=== PATIENT | female | born 1960 | race Caucasian/White ===

== ENCOUNTER 2024-07-11 14:34 | Observation (INO) | payer BC ==
[2024-07-11] MEDS ORDERED: DUONEB 0.5-3 MG/3 ml Neb IH ONE ×2 (14:43→21:10)
[2024-07-11 15:02] LABS: Absolute Neutrophil Ct (ANC) 6.04 x10^3/uL (1.56-6.13); BASOPHIL % 0.5 % (0.1-1.2); Basophil (Absolute #) 0.04 x10^3/uL (0.01-0.08); Eosinophil % 0.5 % (0.7-5.8); Eosinophil (Absolute #) 0.04 x10^3/uL (0.04-0.36); Hematocrit 47.1 % (34.1-44.9); Hemoglobin 15.3 g/dL (11.2-15.7); IMMATURE GRAN # 0.03 x10^3u/L (0.001-0.031); IMMATURE GRAN % 0.4 % (0.001-0.429); Lymphocyte (Absolute #) 0.88 x10^3/uL (1.18-3.74); Lymphocytes % 11.5 % (19.3-51.7); Mean Cell Volume 93.3 fL (79.4-94.8); Mean Corpuscular Hemoglobin 30.3 pg (25.6-32.2); Mean Corpuscular Hgb Concent. 32.5 g/dL (32.2-35.5); Mean Platelet Volume 10.8 fL (9.4-12.3); Monocyte (Absolute #) 0.64 x10^3/uL (0.24-0.86); Monocytes % 8.3 % (4.7-12.5); Neutrophil % 78.8 % (34.0-71.1); Platelet Count 199 x10^3/uL (182-369); Red Blood Count 5.05 x10^6/uL (3.93-5.22); Red Cell Distribution Width 12.8 % (11.7-14.4); White Blood Count 7.7 x10^3/uL (3.98-10.04)
[2024-07-11] MEDS: DUONEB 0.5-3 MG/3 ml Neb IH ONE (15:04)
--- NOTE | 2024-07-11 15:15 | ERPHSYRPT ---
- History of Present Illness Time Seen by Provider: 07/11/24 14:50 Source: patient Exam Limitations: no limitations Patient Subjective Stated Complaint: [facility] called and was sending the pt down for low O2 levels Triage Nursing Assessment: pt came into the er via wheelchair; pt is axo x4; c/o SOB; pt denies pain; audible wheezing present; amarilys coarse lung sounds in all lobes; moist hacking present; tempature of 100 oral; pt was 90% on room air, pt was put on 2L and O2 is now 97%; skin PDW; hypertensive Physician History: 64-year-old female presents to our ED as a referral from [facility] for evaluation. Patient went to [facility] for evaluation of cough and shortness of breath. Upon her arrival patient was observed to be hypoxic. Patient received an albuterol treatment as well as a IM dose of betamethasone 3 mg. Patient symptoms started approximately 2 days ago. Symptoms have been progressive. 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 But no obvious sick contacts. No associated chest pain. No nausea no vomiting. Patient denies a history of COPD. Patient was hypoxic upon arrival. Oxygen nasal cannula applied. Patient's temperature upon arrival was 100. Patient voices no other complaints or concerns at this time. Portions of this note were created with voice recognition technology. There may be grammatical, spelling, punctuation or sound alike errors Timing/Duration: day(s) Activities at Onset: activity Severity of Dyspnea-Max: moderate Severity of Dyspnea-Current: moderate Possible Cause: no prior episodes Modifying Factors: Improves With: activity Associated Symptoms: cough, fever Allergies/Adverse Reactions: Penicillins Allergy (Mild, Verified 06/21/24 11:53) Home Medications: Furosemide [Lasix] 20 mg PO DAILY 07/11/24 [History] Gabapentin 600 mg PO HS 07/11/24 [History] Lisinopril 20 mg [Zestril 20 MG] 20 mg PO DAILY 07/11/24 [History] Morphine Sulfate 1 tab PO TID PRN 07/11/24 [History] Potassium Chloride 10 meq PO DAILY 07/11/24 [History] Rosuvastatin Calcium 5 mg PO DAILY 07/11/24 [History] Venlafaxine HCl [Venlafaxine HCl ER] 150 mg PO DAILY 07/11/24 [History] Hx Tetanus, Diphtheria Vaccination/Date Given: No (unknown) Hx Influenza Vaccination/Date Given: No Hx Pneumococcal Vaccination/Date Given: No Travel Risk - International Travel Have you traveled outside of the country in past 3 weeks: No - Emerging Infectious Disease Are you exhibiting symptoms associated with any current EIDs: Yes Symptoms: Shortness of Breath - Review of Systems Constitutional: No Symptoms, No Fever, No Chills Eyes: No Symptoms Ears, Nose, & Throat: No Symptoms Respiratory: No Symptoms, No Cough, No Dyspnea Cardiac: No Symptoms, No Chest Pain, No Edema, No Syncope Abdominal/Gastrointestinal: No Symptoms, No Abdominal Pain, No Nausea, No Vomiting, No Diarrhea Genitourinary Symptoms: No Symptoms, No Dysuria Musculoskeletal: No Symptoms, No Back Pain, No Neck Pain Skin: No Symptoms, No Rash Neurological: No Symptoms, No Dizziness, No Focal Weakness, No Sensory Changes Psychological: No Symptoms Endocrine: No Symptoms Hematologic/Lymphatic: No Symptoms Immunological/Allergic: No Symptoms All Other Systems: Reviewed and Negative - Past Medical History Pertinent Past Medical History: Yes Neurological History: Migraines, Peripheral Neuropathy ENT History: No Pertinent History Cardiac History: Hypertension Respiratory History: No Pertinent History Endocrine Medical History: No Pertinent History Musculoskeletal History: Fractures GI Medical History: No Pertinent History History: No Pertinent History Psycho-Social History: No Pertinent History Female Reproductive Disorders: No Pertinent History Other Medical History: PSH: BILATERAL HIP REPLACEMENT (2014 AND 2016), HYSTERECTOMY, HERNIA REPAIR. FRACTURES: TAILBONE X2 - Past Surgical History Past Surgical History: Yes Neuro Surgical History: No Pertinent History Cardiac: No Pertinent History Respiratory: No Pertinent History Gastrointestinal: No Pertinent History Genitourinary: No Pertinent History Musculoskeletal: Joint Replacement Female Surgical History: Hysterectomy Other Surgical History: amarilys.hip replacement - Social History Smoking Status: Never smoker Exposure to second hand smoke: Yes Drug Use: none - Social Determinants of Health Will the patient participate in the screening: Yes Do you worry about a steady place to live?: No Do you have any problems with any of the following?: No known problems In the past 12 months,have you had to go without utilities?: No Transportation Issues: No Has anyone in your support network made you feel unsafe?: No Have you or anyone in your house had to go without enough: No - Nursing Vital Signs Nursing Vital Signs: Initial Vital Signs Pulse Rate 58 L 07/11/24 14:32 Respiratory Rate 15 02/11/25 14:32 Blood Pressure 173/82 07/11/24 14:32 O2 Sat by Pulse Oximetry 90 L 07/11/24 14:32 Pain Scale Pain Intensity 0 - Physical Exam General Appearance: no apparent distress, alert Eye Exam: PERRL/EOMI Ears, Nose, Throat Exam: hearing grossly normal, normal pharynx Neck Exam: normal inspection, supple, full range of motion Respiratory Exam: diminished breath sounds, rhonchi, wheezing Cardiovascular/Chest Exam: normal heart sounds, regular rate/rhythm Abdominal/Gastrointestinal Exam: soft, No tenderness, No distention, No mass Extremity Exam: non-tender, normal range of motion, normal inspection, no calf tenderness, no pedal edema Neurologic Exam: alert, oriented x 3, cooperative, junior buyer II-XII nml as tested, sensation nml, No motor deficits Skin Exam: normal color, warm, No dry Lymphatic Exam: No adenopathy SpO2 Interpretation: normal SpO2: 94 O2 Delivery: Room Air - Course Nursing assessment & vital signs reviewed: Yes EKG Interpreted by Me: RATE (49), Sinus Melvin, NORMAL AXIS, NORMAL INTERVALS, NORMAL QRS - CT Exams Chest CT Interpretation: Tele-radiologist Report (Bilateral airspace disease no PE) Ordered Tests: Active Orders 24 hr Category Date Time Status Prepress Operator STAT Care 07/11/24 14:39 Active EKG-ER Only STAT Care 07/11/24 14:38 Active IV Insertion STAT Care 07/11/24 14:38 Active Pulse Oximetry (ED) STAT Care 07/11/24 14:38 Active CHEST WITH CONTRAST [CT] Stat Exams 07/11/24 16:29 Taken BLOOD CULTURE Stat Lab 07/11/24 14:58 Received CBC W DIFF Stat Lab 07/11/24 14:51 Completed CMP Stat Lab 07/11/24 14:51 Completed D-DIMER QUANTITATIVE Stat Lab 07/11/24 14:51 Completed NT PRO BNPII Stat Lab 07/11/24 14:51 Completed TROPONIN Q4H Lab 07/11/24 14:51 Completed TROPONIN Q4H Lab 07/11/24 18:32 Completed TROPONIN Q4H Lab 07/11/24 22:45 Ordered Respiratory Therapy Assessment DAILY RT 07/11/24 15:05 Active Transfer Order Routine Transfer 07/11/24 Ordered Medication Summary Generic Name Dose Route Start Last Admin Trade Name Freq PRN Reason Stop Dose Admin Levofloxacin/Dextrose 750 mg in 150 mls @ 100 mls/hr 07/11/24 19:09 07/11/24 19:16 Levofloxacin 750mg/150ml D5w IV 07/11/24 20:38 100 mls/hr STAT STA 100 mls/hr Administration Discontinued Medications Generic Name Dose Route Start Last Admin Trade Name Jere PRN Reason Stop Dose Admin Albuterol/Ipratropium 3 ml 07/11/24 14:38 07/11/24 15:04 Ipratropium/Albuterol Sulfate 3 Ml Ampul.Neb IH 07/11/24 14:39 3 ml STAT ONE Administration Albuterol/Ipratropium Confirm 07/11/24 14:43 Ipratropium/Albuterol Sulfate 3 Ml Ampul.Neb Administered 07/11/24 14:44 Dose 3 ml IH .STK-MED ONE Diphenhydramine HCl 50 mg 07/11/24 20:15 Diphenhydramine Hcl 50 Mg/Ml Vial IV 07/11/24 20:16 STAT ONE Levofloxacin/Dextrose Confirm 07/11/24 19:16 Levofloxacin 750mg/150ml D5w Administered 07/11/24 19:17 Dose 750 mg in 150 mls @ ud IV .STK-MED ONE Lab/Rad Data: Laboratory Result Diagrams 07/11/24 14:51 07/11/24 14:51 Laboratory Results 07/11/24 07/11/24 07/11/24 Range/Units 18:32 15:00 14:51 WBC (3.98-10.04) x10^3/uL RBC (3.93-5.22) x10^6/uL Hgb (11.2-15.7) g/dL Hct (34.1-44.9) % MCV (79.4-94.8) fL MCH (25.6-32.2) pg MCHC (32.2-35.5) g/dL RDW (11.7-14.4) % Plt Count (182-369) x10^3/uL MPV (9.4-12.3) fL Gran % (34.0-71.1) % Immature Gran % (Auto) (0.001-0.429) % Nucleat RBC Rel Count (0.00-0.2) % Eos # (Auto) (0.04-0.36) x10^3/uL Immature Gran # (Auto) (0.001-0.031) x10^3u/L Absolute Lymphs (auto) (1.18-3.74) x10^3/uL Absolute Monos (auto) (0.24-0.86) x10^3/uL Absolute Nucleated RBC (0.00-0.012) x10^3u/L Lymphocytes % (19.3-51.7) % Monocytes % (4.7-12.5) % Eosinophils % (0.7-5.8) % Basophils % (0.1-1.2) % Absolute Granulocytes (1.56-6.13) x10^3/uL Basophils # (0.01-0.08) x10^3/uL D-Dimer (0.0-0.50) mg/L Sodium (135-145) mmol/L Potassium (3.5-5.1) mmol/L Chloride (98-107) mmol/L Carbon Dioxide (22-30) mmol/L Anion Gap (5-15) MEQ/L BUN (7-17) mg/dL Creatinine (0.52-1.04) mg/dL Estimated GFR ML/MIN Glucose (74-106) mg/dL Calcium (8.4-10.2) mg/dL Total Bilirubin (0.2-1.3) mg/dL AST (14-36) U/L ALT (0-35) U/L Alkaline Phosphatase (38-126) U/L Troponin I 0.014 0.012 (0.000-0.033) ng/mL NT-Pro-B Natriuret Pep (<300) pg/mL Serum Total Protein (6.3-8.2) g/dL Albumin (3.5-5.0) g/dL Influenza Type A Ag NEGATIVE (NEGATIVE) Influenza Type B Ag NEGATIVE (NEGATIVE) RSV (PCR) NEGATIVE (NEGATIVE) SARS-CoV-2 (PCR) NEGATIVE (NEGATIVE) 07/11/24 07/11/24 07/11/24 Range/Units 14:51 14:51 14:51 WBC 7.7 (3.98-10.04) x10^3/uL RBC 5.05 (3.93-5.22) x10^6/uL Hgb 15.3 (11.2-15.7) g/dL Hct 47.1 H (34.1-44.9) % MCV 93.3 (79.4-94.8) fL MCH 30.3 (25.6-32.2) pg MCHC 32.5 (32.2-35.5) g/dL RDW 12.8 (11.7-14.4) % Plt Count 199 (182-369) x10^3/uL MPV 10.8 (9.4-12.3) fL Gran % 78.8 H (34.0-71.1) % Immature Gran % (Auto) 0.4 (0.001-0.429) % Nucleat RBC Rel Count 0.0 (0.00-0.2) % Eos # (Auto) 0.04 (0.04-0.36) x10^3/uL Immature Gran # (Auto) 0.03 (0.001-0.031) x10^3u/L Absolute Lymphs (auto) 0.88 L (1.18-3.74) x10^3/uL Absolute Monos (auto) 0.64 (0.24-0.86) x10^3/uL Absolute Nucleated RBC 0.00 (0.00-0.012) x10^3u/L Lymphocytes % 11.5 L (19.3-51.7) % Monocytes % 8.3 (4.7-12.5) % Eosinophils % 0.5 L (0.7-5.8) % Basophils % 0.5 (0.1-1.2) % Absolute Granulocytes 6.04 (1.56-6.13) x10^3/uL Basophils # 0.04 (0.01-0.08) x10^3/uL D-Dimer 2.34 H* (0.0-0.50) mg/L Sodium 138 (135-145) mmol/L Potassium 4.3 (3.5-5.1) mmol/L Chloride 100 (98-107) mmol/L Carbon Dioxide 30 (22-30) mmol/L Anion Gap 11.5 (5-15) MEQ/L BUN 11 (7-17) mg/dL Creatinine 0.69 (0.52-1.04) mg/dL Estimated GFR 96.9 ML/MIN Glucose 105 (74-106) mg/dL Calcium 8.6 (8.4-10.2) mg/dL Total Bilirubin 0.40 (0.2-1.3) mg/dL AST 36 (14-36) U/L ALT 21 (0-35) U/L Alkaline Phosphatase 96 (38-126) U/L Troponin I (0.000-0.033) ng/mL NT-Pro-B Natriuret Pep 364 (<300) pg/mL Serum Total Protein 7.5 (6.3-8.2) g/dL Albumin 4.5 (3.5-5.0) g/dL Influenza Type A Ag (NEGATIVE) Influenza Type B Ag (NEGATIVE) RSV (PCR) (NEGATIVE) SARS-CoV-2 (PCR) (NEGATIVE) - Progress Progress: improved Air Movement: good Progress Note: 64-year-old female presents to our ED as a referral from [facility] for evaluation of shortness of breath and hypoxia. Physical exam reveals wheezing diminished breath sounds and rhonchi. D-dimer positive. CTA chest negative for PE. However bilateral airspace disease observed. Blood cultures obtained. Antibiotics administered. Patient feels much better however is not ready for discharge. Patient will be admitted for further evaluation and treatment. Case discussed with hospitalist accepts admission to observation at 7:55 PM. Plan of care discussed with patient. She agrees to admission to [facility] for further evaluation and treatment. Portions of this note were created with voice recognition technology. There may be grammatical, spelling, punctuation or sound alike errors 07/11/24 20:18 Complexity of problem addressed is moderate acute complicated. No critical care time. Complex of data reviewed analyzes extensive. Test ordered test reviewed results analyzed and correlated clinically with history and physical exam. Management discussed with hospitalist who excepts admission to observation. Risk of complication and or risk of morbidity/mortality of patient management is high. Patient requires hospitalization for further evaluation and treatment. Vital stable. Time spent to admit patient is approximately 15 minutes. Plan of care established for shared decision making. No social determinants of health present to impede follow-up. Portions of this note were created with voice recognition technology. There may be grammatical, spelling, punctuation or sound alike errors 07/11/24 20:19 Blood Culture(s) Obtained: Yes Antibiotics given: Yes Discussed with : Yina Will see patient in: hospital (observation) Counseled pt/family regarding: lab results, diagnosis, rad results - Departure Departure Disposition: Observation Clinical Impression: Bilateral pneumonia, Hypoxia, Shortness of breath, Wheezing Condition: Stable Critical Care Time: No Referrals: ESTHER DE LA GARZA [Primary Care Provider] - Follow up/PCP as directed
[2024-07-11 15:26] LABS: ALBUMIN 4.5 g/dL (3.5-5.0); ANION GAP 11.5 MEQ/L (5-15); BILIRUBIN,TOTAL 0.4 mg/dL (0.2-1.3); Calcium 8.6 mg/dL (8.4-10.2); Creatinine 1 0.69 mg/dL (0.52-1.04); EST GLOMERULAR FILTRATION RATE 96.9 ML/MIN; Potassium 4.3 mmol/L (3.5-5.1); Total Protein 7.5 g/dL (6.3-8.2)
[2024-07-11 15:39] LABS: INFLUENZA A NEGATIVE (NEGATIVE); INFLUENZA B NEGATIVE (NEGATIVE); RESPIRATORY SYNCTIAL VIRUS NEGATIVE (NEGATIVE); SARS-CoV-2 Xpert Express NEGATIVE (NEGATIVE)
[2024-07-11] MEDS: LEVOFLOXACIN 750MG/150ML D5W 750 MG/150 ML BAG IV STA (19:16)
[2024-07-11] MEDS ORDERED: LEVOFLOXACIN 750MG/150ML D5W 750 MG/150 ML BAG IV ONE (19:16)
[2024-07-11] MEDS: BENADRYL 50 MG/ML IV ONE (20:17)
[2024-07-11] MEDS ORDERED: BENADRYL 50 MG/ML ONE (20:17)
[2024-07-11] MEDS: DUONEB 0.5-3 MG/3 ml Neb IH SCH (21:29)
[2024-07-11] MEDS ORDERED: MSIR 15 MG PO PRN (22:11)
--- NOTE | 2024-07-11 23:02 | PCM.HP ---
History of Present Illness - Chief Complaint Chief Complaint: shortness of breath, cough Date: 07/11/24 History of Present Illness: 64-year-old woman with history of hypertension, chronic hip pain, and depression, who presents with dyspnea and cough. Patient noted onset 3 days earlier of dyspnea and frequent cough, with some subjective fever and night sweats, and 1 episode of diarrhea. She has had no appetite, with poor oral intake for the past 3 days. Her had similarly been sick a few days earlier, but had been improving overall. She continues to have severe dyspnea and wheezing, and went to urgent care. There she was noted to have an SpO2 in the 80s. She was given steroids and nebulizer treatment, and sent to the ED. She is currently requiring 2 L oxygen, as well as being given Levaquin and DuoNeb in the ER. Patient denies any history of COPD or asthma, and has no smoking history. However, she notes that she has a nebulizer machine at home because after a bout of pneumonia few years ago she had to use nebs during her recovery. However, she has never used the machine since then. She did not try using it during this episode because she had landed out to a friend who is currently bringing it back to her. - Review of Systems All Other Systems: Reviewed and Negative Medications & Allergies Home Medications: Home Medication List Furosemide [Lasix] 20 mg PO DAILY 07/11/24 [History Confirmed 07/11/24] Gabapentin 600 mg PO HS 07/11/24 [History Confirmed 07/11/24] Lisinopril 20 mg [Zestril 20 MG] 20 mg PO DAILY 07/11/24 [History Confirmed 07/11/24] Morphine Sulfate 1 tab PO TID PRN 07/11/24 [History Confirmed 07/11/24] Potassium Chloride 10 meq PO DAILY 07/11/24 [History Confirmed 07/11/24] Rosuvastatin Calcium 5 mg PO DAILY 07/11/24 [History Confirmed 07/11/24] Venlafaxine HCl [Venlafaxine HCl ER] 150 mg PO DAILY 07/11/24 [History Confirmed 07/11/24] Allergies/Adverse Reactions: Allergies Allergy/AdvReac Type Severity Reaction Status Date / Time Penicillins Allergy Mild Verified 06/21/24 11:53 - Past Medical History Past Medical History: Yes Neurological History: Migraines, Peripheral Neuropathy ENT History: No Pertinent History Cardiac History: Hypertension Respiratory History: No Pertinent History Endocrine Medical History: No Pertinent History Musculoskelatal History: Fractures GI Medical History: No Pertinent History History: No Pertinent History Pyscho-Social History: No Pertinent History Reproductive Disorders: No Pertinent History Comment: PSH: BILATERAL HIP REPLACEMENT (2014 AND 2015), HYSTERECTOMY, HERNIA REPAIR. FRACTURES: TAILBONE X2 - Past Surgical History Past Surgical History: Yes Neuro Surgical History: No Pertinent History Cardiac History: No Pertinent History Respiratory Surgery: No Pertinent History GI Surgical History: No Pertinent History Genitourinary Surgical Hx: No Pertinent History Musculskeletal Surgical Hx: Joint Replacement Female Surgical History: Hysterectomy Other Surgical History: amarilys.hip replacement Significant Family History: no pertinent family hx - Social History Smoking Status: Never smoker Exposure to second hand smoke: No Alcohol: None Drug Use: none - Social Determinants of Health Will the patient participate in the screening: Declined to provide Do you worry about a steady place to live?: No Do you have any problems with any of the following?: No known problems In the past 12 months,have you had to go without utilities?: No Have you or anyone in your house had to go without enough: No Transportation Issues: No Has anyone in your support network made you feel unsafe?: No - Physical Exam Vital Signs: Vital Signs - 24 hr Temp Pulse Resp BP Pulse Ox 07/11/24 21:30 65 22 95 07/11/24 20:44 98.2 F 63 24 95 07/11/24 20:24 94 L 07/11/24 20:03 54 L 18 97 07/11/24 19:46 51 L 16 159/106 07/11/24 19:30 52 L 18 178/84 95 07/11/24 19:28 53 L 27 H 179/80 94 L 07/11/24 19:20 51 L 19 07/11/24 19:18 90 23 07/11/24 19:01 52 L 23 169/90 97 07/11/24 18:46 57 L 17 184/80 95 07/11/24 18:15 58 L 20 178/83 99 07/11/24 18:11 57 L 22 176/117 99 07/11/24 18:01 61 17 165/83 98 07/11/24 17:30 59 L 16 204/79 100 07/11/24 17:17 58 L 21 198/79 95 07/11/24 17:11 60 22 198/79 95 07/11/24 17:10 67 16 94 L 07/11/24 16:31 177/80 07/11/24 16:29 58 L 18 195/82 97 07/11/24 16:03 63 17 192/83 98 07/11/24 15:30 54 L 20 196/86 99 07/11/24 15:05 50 L 18 94 L 07/11/24 15:01 57 L 17 175/89 97 07/11/24 14:44 90 L 07/11/24 14:35 100 F 50 L 22 90 L 07/11/24 14:32 58 L 15 173/82 90 L Physical Exam GEN: Sitting up in bed in no acute distress. HENT: Normocephalic, atraumatic. Moist mucous membranes. EYES: Normal inspection, anicteric sclera, extraocular movements intact. NECK: Supple, full range of motion CV: Regular rate and rhythm, no murmurs, no gallops. No JVD or edema. PULM: Diffuse expiratory wheezing. No work of breathing. On 2 L oxygen by nasal cannula. ABD: Nondistended, nontender. MSK: No joint effusions, full range of motion SKIN: No rashes, normal color. NEURO: Face symmetric, no focal motor or sensory deficits. PSYCH: Alert, oriented x 3 Results - Labs Lab/Micro Results: Lab Results-Last 24 Hours 07/11/24 07/11/24 07/11/24 Range/Units 14:51 14:51 14:51 WBC 7.7 (3.98-10.04) x10^3/uL RBC 5.05 (3.93-5.22) x10^6/uL Hgb 15.3 (11.2-15.7) g/dL Hct 47.1 H (34.1-44.9) % MCV 93.3 (79.4-94.8) fL MCH 30.3 (25.6-32.2) pg MCHC 32.5 (32.2-35.5) g/dL RDW 12.8 (11.7-14.4) % Plt Count 199 (182-369) x10^3/uL MPV 10.8 (9.4-12.3) fL Gran % 78.8 H (34.0-71.1) % Immature Gran % (Auto) 0.4 (0.001-0.429) % Nucleat RBC Rel Count 0.0 (0.00-0.2) % Eos # (Auto) 0.04 (0.04-0.36) x10^3/uL Immature Gran # (Auto) 0.03 (0.001-0.031) x10^3u/L Absolute Lymphs (auto) 0.88 L (1.18-3.74) x10^3/uL Absolute Monos (auto) 0.64 (0.24-0.86) x10^3/uL Absolute Nucleated RBC 0.00 (0.00-0.012) x10^3u/L Lymphocytes % 11.5 L (19.3-51.7) % Monocytes % 8.3 (4.7-12.5) % Eosinophils % 0.5 L (0.7-5.8) % Basophils % 0.5 (0.1-1.2) % Absolute Granulocytes 6.04 (1.56-6.13) x10^3/uL Basophils # 0.04 (0.01-0.08) x10^3/uL D-Dimer 2.34 H* (0.0-0.50) mg/L Sodium 138 (135-145) mmol/L Potassium 4.3 (3.5-5.1) mmol/L Chloride 100 (98-107) mmol/L Carbon Dioxide 30 (22-30) mmol/L Anion Gap 11.5 (5-15) MEQ/L BUN 11 (7-17) mg/dL Creatinine 0.69 (0.52-1.04) mg/dL Estimated GFR 96.9 ML/MIN Glucose 105 (74-106) mg/dL Calcium 8.6 (8.4-10.2) mg/dL Total Bilirubin 0.40 (0.2-1.3) mg/dL AST 36 (14-36) U/L ALT 21 (0-35) U/L Alkaline Phosphatase 96 (38-126) U/L Troponin I (0.000-0.033) ng/mL NT-Pro-B Natriuret Pep 364 (<300) pg/mL Serum Total Protein 7.5 (6.3-8.2) g/dL Albumin 4.5 (3.5-5.0) g/dL Influenza Type A Ag (NEGATIVE) Influenza Type B Ag (NEGATIVE) RSV (PCR) (NEGATIVE) SARS-CoV-2 (PCR) (NEGATIVE) 07/11/24 07/11/24 07/11/24 Range/Units 14:51 15:00 18:32 WBC (3.98-10.04) x10^3/uL RBC (3.93-5.22) x10^6/uL Hgb (11.2-15.7) g/dL Hct (34.1-44.9) % MCV (79.4-94.8) fL MCH (25.6-32.2) pg MCHC (32.2-35.5) g/dL RDW (11.7-14.4) % Plt Count (182-369) x10^3/uL MPV (9.4-12.3) fL Gran % (34.0-71.1) % Immature Gran % (Auto) (0.001-0.429) % Nucleat RBC Rel Count (0.00-0.2) % Eos # (Auto) (0.04-0.36) x10^3/uL Immature Gran # (Auto) (0.001-0.031) x10^3u/L Absolute Lymphs (auto) (1.18-3.74) x10^3/uL Absolute Monos (auto) (0.24-0.86) x10^3/uL Absolute Nucleated RBC (0.00-0.012) x10^3u/L Lymphocytes % (19.3-51.7) % Monocytes % (4.7-12.5) % Eosinophils % (0.7-5.8) % Basophils % (0.1-1.2) % Absolute Granulocytes (1.56-6.13) x10^3/uL Basophils # (0.01-0.08) x10^3/uL D-Dimer (0.0-0.50) mg/L Sodium (135-145) mmol/L Potassium (3.5-5.1) mmol/L Chloride (98-107) mmol/L Carbon Dioxide (22-30) mmol/L Anion Gap (5-15) MEQ/L BUN (7-17) mg/dL Creatinine (0.52-1.04) mg/dL Estimated GFR ML/MIN Glucose (74-106) mg/dL Calcium (8.4-10.2) mg/dL Total Bilirubin (0.2-1.3) mg/dL AST (14-36) U/L ALT (0-35) U/L Alkaline Phosphatase (38-126) U/L Troponin I 0.012 0.014 (0.000-0.033) ng/mL NT-Pro-B Natriuret Pep (<300) pg/mL Serum Total Protein (6.3-8.2) g/dL Albumin (3.5-5.0) g/dL Influenza Type A Ag NEGATIVE (NEGATIVE) Influenza Type B Ag NEGATIVE (NEGATIVE) RSV (PCR) NEGATIVE (NEGATIVE) SARS-CoV-2 (PCR) NEGATIVE (NEGATIVE) - Radiology Impressions Radiology Exams & Impressions: Radiology Procedures Category Date Time Status CHEST WITH CONTRAST [CT] Stat Exams 07/11/24 16:[address] chest bilateral upper lobe and right lower lobe diffuse airspace infiltrates. No PE. (Images personally reviewed) - Other Procedures and Tests Respiratory Therapy 07/11/24 15:05 Respiratory Therapy Assessment DAILY 07/11/24 21:29 Oxygen Oxymizer LPM 2 lpm Assessment/Plan (1) Bilateral pneumonia Current Visit: Yes Status: Acute Assessment & Plan: 64-year-old woman with a history of hypertension, depression, and chronic hip pain, who presents with pneumonia, acute hypoxic respiratory failure, and likely bronchitis. ## Pneumonia community-acquired, and given its diffuse appearance on chest x- ray, as well as recent infection from her , I suspect is likely viral pneumonia. However, given the severity of her disease, need for inpatient admission, and hypoxia, will cover for bacterial pneumonia. Continue Levaquin 500 mg IV daily Follow-up blood culture results ## Acute hypoxic respiratory failure, reactive airway disease patient denies any history of COPD or asthma. She has no smoking history. However, she has had a prior episode of reactive airways after a bout of pneumonia. Currently she is having wheezing and hypoxia, consistent with reactive airways. Perhaps this is an acute bronchitis, or perhaps is a very mild COPD. In either case, would benefit from anti-inflammatory therapy and bronchodilators. Solu-Medrol 40 mg IV BID DuoNeb q.6 hours, as well as q.4 hours PRN Titrate oxygen to maintain SpO2 between 91 and 94% When recovered, patient can be referred for outpatient pulmonary function testing to see if has an underlying COPD component ## Hypertension blood pressure poorly controlled on admission, but in the setting of acute illness. Continue home lisinopril 20, Lasix 20 for now ## Depression appropriate affect currently. Continue home Effexor 100 mg daily ## Chronic hip pain Continue home morphine IR 15 mg TID CODE STATUS: Full code Prophylaxis: Lovenox 40 Diet: Regular Dispo: Place in observation, expect discharge to home once breathing has improved and weaned off oxygen Entirety of encounter took place via live audio/video telemedicine device, with remote physician and patient in hospital, with the assistance of bedside nurse. Code(s): J18.9 - PNEUMONIA, 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 Telemedicine Encounter - Telemedicine Encounter Telemedicine Encounter: "The entirety of this encounter was performed via Telemedicine" This visit was performed using real-time audio and video connection between my location and thepatients locationwith the assistance of a surrogateat the patients location. Written or verbal consent was obtained from the patient/guardian to perform this visit using[facility] technology. Any patient questions regarding the telemedicine interaction were answered.
[2024-07-12 04:43] LABS: Hematocrit 42.4 % (34.1-44.9); Hemoglobin 14.1 g/dL (11.2-15.7); Mean Cell Volume 92.4 fL (79.4-94.8); Mean Corpuscular Hemoglobin 30.7 pg (25.6-32.2); Mean Corpuscular Hgb Concent. 33.3 g/dL (32.2-35.5); Platelet Count 193 x10^3/uL (182-369); Red Blood Count 4.59 x10^6/uL (3.93-5.22)
[2024-07-12 04:59] LABS: Calcium 8.3 mg/dL (8.4-10.2); Creatinine 1 0.66 mg/dL (0.52-1.04); EST GLOMERULAR FILTRATION RATE 97.9 ML/MIN; Potassium 3.9 mmol/L (3.5-5.1)
[2024-07-12] MEDS: TYLENOL 325 MG PO PRN (07:54)
--- NOTE | 2024-07-12 08:38 | XRAY ---
Indication: Short of breath. Hypoxia. Elevated d-dimer. Multiple contiguous axial images obtained through the chest using 80 cc Isovue 370 contrast and PE protocol. Comparison: None Good opacification pulmonary arteries to include the lobar and segmental branches. No pulmonary embolus. Heart not enlarged. Aorta is normal in course and caliber. No pathologic mediastinal/hilar lymphadenopathy. Lungs demonstrates mild scattered bilateral patchy consolidating/nonconsolidating airspace disease. No effusion. Bony thorax intact with osteopenia and moderate degenerative changes throughout spine. Limited upper abdomen demonstrates fatty liver. Impression: 1. Negative pulmonary embolus.. 2. Diffuse bilateral patchy airspace disease. 3. Chronic findings including osteopenia, degenerative spondylosis, and fatty liver.
[2024-07-12] MEDS: Zestril 20 MG PO SCH (09:18)
[2024-07-12] MEDS: Effexor XR 75 MG PO SCH (09:19)
[2024-07-12] MEDS: ENOXAPARIN SODIUM SQ SCH (09:19)
[2024-07-12] MEDS: solu-MEDROL 40 MG, Sterile H2O 10 ml 1 ML IV SCH (09:19)
[2024-07-12] MEDS: Zocor 10MG PO SCH (09:19)
[2024-07-12] MEDS: Klor Con PO SCH (09:19)
[2024-07-12] MEDS: LASIX 20 MG PO SCH (09:19)
[2024-07-12] MEDS ORDERED: NON-FORMULARY ITEM (Rosuvastatin Calcium [Rosuvastatin Calcium] 5 MG Tablet) PO SCH (10:00)
[2024-07-12] MEDS ORDERED: NON-FORMULARY ITEM (Venlafaxine Hcl [Venlafaxine Hcl Er] 150 MG Tab.Er.24) PO SCH (10:00)
[2024-07-12] MEDS: DUONEB 0.5-3 MG/3 ml Neb IH PRN (10:48)
--- NOTE | 2024-07-12 12:22 | PCM.NOTE ---
Date and Time: 07/12/24 1216 Subjective Assessment: 07/12/23 Mrs. Lawrence is a 64-year-old woman with history of hypertension, chronic hip pain, and depression, who presents with dyspnea and cough. Pt seen in ER on 07/11 and admitted to the hospital. Patient noted onset 3 days earlier of dyspnea and frequent cough, with some subjective fever and night sweats, and 1 episode of diarrhea. She has had no appetite, with poor oral intake for the past 3 days. Her had similarly been sick a few days earlier, but had been improving overall. She continues to have severe dyspnea and wheezing, and went to urgent care. There she was noted to have an SpO2 in the 80s. She was given steroids and nebulizer treatment, and sent to the ED. She is currently requiring 2 L oxygen- 94%, as well as being given Levaquin and DuoNeb in the ER. Patient denies any history of COPD or asthma, and has no smoking history. However, she notes that she has a nebulizer machine at home because after a bout of pneumonia few years ago she had to use nebs during her recovery. However, she has never used the machine since then. She did not try using it during this episode because she had lend it out to a friend who is currently bringing it back to her. CXr shows RML pneumonia. Continue IV antibiotics, steroids, and duonebs. Labs overall improved. She will likely d/c tomorrow. Will wean O2 as tolerated. She denies CP, Abd. pain, N/V/D. - Review of Systems Constitutional: Fatigue, No Fever, No Chills Eyes: No Symptoms Ears, Nose, & Throat: No Symptoms Respiratory: Cough (with red sputum production), Short Of Breath Cardiac: No Chest Pain, No Edema, No Syncope Abdominal/Gastrointestinal: No Abdominal Pain, No Nausea, No Vomiting, No Diarrhea Genitourinary Symptoms: No Dysuria Musculoskeletal: No Back Pain, No Neck Pain Skin: No Rash Neurological: No Dizziness, No Focal Weakness, No Sensory Changes Psychological: No Symptoms Endocrine: No Symptoms Hematologic/Lymphatic: No Symptoms Immunological/Allergic: No Symptoms Objective Exam General Appearance: no apparent distress, alert, obese Neurologic Exam: alert, oriented x 3, cooperative, normal mood/affect, nml cerebellar function, sensation nml, No motor deficits Skin Exam: normal color, warm, dry Eye Exam: PERRL, EOMI, eyes nml inspection Ears, Nose, Throat Exam: normal ENT inspection, pharynx normal, moist mucous membranes Neck Exam: normal inspection, non-tender, supple, full range of motion Respiratory Exam: wheezing, No respiratory distress Cardiovascular Exam: regular rate/rhythm, normal heart sounds Gastrointestinal/Abdomen Exam: soft, No tenderness, No mass Extremity Exam: normal inspection, normal range of motion Back Exam: normal inspection, normal range of motion, No CVA tenderness, No vertebral tenderness Pelvic Exam: deferred Rectal Exam: deferred Objective Data Vital Signs: Vital Signs - 24 hr Temp Pulse Resp BP BP Pulse Ox 07/12/24 11:48 97.9 F 67 22 188/86 93 L 07/12/24 10:49 81 22 95 07/12/24 07:55 44 L 20 94 L 07/12/24 04:00 97.8 F 58 L 24 149/69 94 L 07/12/24 01:29 55 L 20 94 L 07/11/24 23:32 67 22 170/74 93 L 07/11/24 21:30 65 22 95 07/11/24 20:44 98.2 F 63 24 95 07/11/24 20:24 94 L 07/11/24 20:03 54 L 18 97 07/11/24 19:46 51 L 16 159/106 07/11/24 19:30 52 L 18 178/84 95 07/11/24 19:28 53 L 27 H 179/80 94 L 07/11/24 19:20 51 L 19 07/11/24 19:18 90 23 07/11/24 19:01 52 L 23 169/90 97 07/11/24 18:46 57 L 17 184/80 95 07/11/24 18:15 58 L 20 178/83 99 07/11/24 18:11 57 L 22 176/117 99 07/11/24 18:01 61 17 165/83 98 07/11/24 17:30 59 L 16 204/79 100 07/11/24 17:17 58 L 21 198/79 95 07/11/24 17:11 60 22 198/79 95 07/11/24 17:10 67 16 94 L 07/11/24 16:31 177/80 07/11/24 16:29 58 L 18 195/82 97 07/11/24 16:03 63 17 192/83 98 07/11/24 15:30 54 L 20 196/86 99 07/11/24 15:05 50 L 18 94 L 07/11/24 15:01 57 L 17 175/89 97 07/11/24 14:44 90 L 07/11/24 14:35 100 F 50 L 22 90 L 07/11/24 14:32 58 L 15 173/82 90 L Pain Assessment - Last Documented Pain Intensity 4 Pain Scale Used 0-10 Pain Scale Intake and Output: Intake & Output 07/10/24 07/11/24 07/12/24 07/13/24 11:59 11:59 11:59 11:59 Intake Total 780 Output Total 250 Balance 530 Weight 96.7 kg Lab Results: Lab Results-Last 24 Hours 07/11/24 07/11/24 07/11/24 Range/Units 14:51 14:51 14:51 WBC 7.7 (3.98-10.04) x10^3/uL RBC 5.05 (3.93-5.22) x10^6/uL Hgb 15.3 (11.2-15.7) g/dL Hct 47.1 H (34.1-44.9) % MCV 93.3 (79.4-94.8) fL MCH 30.3 (25.6-32.2) pg MCHC 32.5 (32.2-35.5) g/dL RDW 12.8 (11.7-14.4) % Plt Count 199 (182-369) x10^3/uL MPV 10.8 (9.4-12.3) fL Gran % 78.8 H (34.0-71.1) % Immature Gran % (Auto) 0.4 (0.001-0.429) % Nucleat RBC Rel Count 0.0 (0.00-0.2) % Eos # (Auto) 0.04 (0.04-0.36) x10^3/uL Immature Gran # (Auto) 0.03 (0.001-0.031) x10^3u/L Absolute Lymphs (auto) 0.88 L (1.18-3.74) x10^3/uL Absolute Monos (auto) 0.64 (0.24-0.86) x10^3/uL Absolute Nucleated RBC 0.00 (0.00-0.012) x10^3u/L Lymphocytes % 11.5 L (19.3-51.7) % Monocytes % 8.3 (4.7-12.5) % Eosinophils % 0.5 L (0.7-5.8) % Basophils % 0.5 (0.1-1.2) % Absolute Granulocytes 6.04 (1.56-6.13) x10^3/uL Basophils # 0.04 (0.01-0.08) x10^3/uL D-Dimer 2.34 H* (0.0-0.50) mg/L Sodium 138 (135-145) mmol/L Potassium 4.3 (3.5-5.1) mmol/L Chloride 100 (98-107) mmol/L Carbon Dioxide 30 (22-30) mmol/L Anion Gap 11.5 (5-15) MEQ/L BUN 11 (7-17) mg/dL Creatinine 0.69 (0.52-1.04) mg/dL Estimated GFR 96.9 ML/MIN Glucose 105 (74-106) mg/dL Calcium 8.6 (8.4-10.2) mg/dL Total Bilirubin 0.40 (0.2-1.3) mg/dL AST 36 (14-36) U/L ALT 21 (0-35) U/L Alkaline Phosphatase 96 (38-126) U/L Troponin I (0.000-0.033) ng/mL NT-Pro-B Natriuret Pep 364 (<300) pg/mL Serum Total Protein 7.5 (6.3-8.2) g/dL Albumin 4.5 (3.5-5.0) g/dL Procalcitonin (0.030-0.080) ng/mL Influenza Type A Ag (NEGATIVE) Influenza Type B Ag (NEGATIVE) RSV (PCR) (NEGATIVE) SARS-CoV-2 (PCR) (NEGATIVE) 07/11/24 07/11/24 07/11/24 Range/Units 14:51 15:00 18:32 WBC (3.98-10.04) x10^3/uL RBC (3.93-5.22) x10^6/uL Hgb (11.2-15.7) g/dL Hct (34.1-44.9) % MCV (79.4-94.8) fL MCH (25.6-32.2) pg MCHC (32.2-35.5) g/dL RDW (11.7-14.4) % Plt Count (182-369) x10^3/uL MPV (9.4-12.3) fL Gran % (34.0-71.1) % Immature Gran % (Auto) (0.001-0.429) % Nucleat RBC Rel Count (0.00-0.2) % Eos # (Auto) (0.04-0.36) x10^3/uL Immature Gran # (Auto) (0.001-0.031) x10^3u/L Absolute Lymphs (auto) (1.18-3.74) x10^3/uL Absolute Monos (auto) (0.24-0.86) x10^3/uL Absolute Nucleated RBC (0.00-0.012) x10^3u/L Lymphocytes % (19.3-51.7) % Monocytes % (4.7-12.5) % Eosinophils % (0.7-5.8) % Basophils % (0.1-1.2) % Absolute Granulocytes (1.56-6.13) x10^3/uL Basophils # (0.01-0.08) x10^3/uL D-Dimer (0.0-0.50) mg/L Sodium (135-145) mmol/L Potassium (3.5-5.1) mmol/L Chloride (98-107) mmol/L Carbon Dioxide (22-30) mmol/L Anion Gap (5-15) MEQ/L BUN (7-17) mg/dL Creatinine (0.52-1.04) mg/dL Estimated GFR ML/MIN Glucose (74-106) mg/dL Calcium (8.4-10.2) mg/dL Total Bilirubin (0.2-1.3) mg/dL AST (14-36) U/L ALT (0-35) U/L Alkaline Phosphatase (38-126) U/L Troponin I 0.012 0.014 (0.000-0.033) ng/mL NT-Pro-B Natriuret Pep (<300) pg/mL Serum Total Protein (6.3-8.2) g/dL Albumin (3.5-5.0) g/dL Procalcitonin (0.030-0.080) ng/mL Influenza Type A Ag NEGATIVE (NEGATIVE) Influenza Type B Ag NEGATIVE (NEGATIVE) RSV (PCR) NEGATIVE (NEGATIVE) SARS-CoV-2 (PCR) NEGATIVE (NEGATIVE) 07/11/24 07/12/24 07/12/24 Range/Units 22:30 04:15 04:15 WBC 7.0 (3.98-10.04) x10^3/uL RBC 4.59 (3.93-5.22) x10^6/uL Hgb 14.1 (11.2-15.7) g/dL Hct 42.4 (34.1-44.9) % MCV 92.4 (79.4-94.8) fL MCH 30.7 (25.6-32.2) pg MCHC 33.3 (32.2-35.5) g/dL RDW 13.0 (11.7-14.4) % Plt Count 193 (182-369) x10^3/uL MPV 11.0 (9.4-12.3) fL Gran % (34.0-71.1) % Immature Gran % (Auto) (0.001-0.429) % Nucleat RBC Rel Count (0.00-0.2) % Eos # (Auto) (0.04-0.36) x10^3/uL Immature Gran # (Auto) (0.001-0.031) x10^3u/L Absolute Lymphs (auto) (1.18-3.74) x10^3/uL Absolute Monos (auto) (0.24-0.86) x10^3/uL Absolute Nucleated RBC (0.00-0.012) x10^3u/L Lymphocytes % (19.3-51.7) % Monocytes % (4.7-12.5) % Eosinophils % (0.7-5.8) % Basophils % (0.1-1.2) % Absolute Granulocytes (1.56-6.13) x10^3/uL Basophils # (0.01-0.08) x10^3/uL D-Dimer (0.0-0.50) mg/L Sodium 134 L (135-145) mmol/L Potassium 3.9 (3.5-5.1) mmol/L Chloride 100 (98-107) mmol/L Carbon Dioxide 26 (22-30) mmol/L Anion Gap 12.0 (5-15) MEQ/L BUN 10 (7-17) mg/dL Creatinine 0.66 (0.52-1.04) mg/dL Estimated GFR 97.9 ML/MIN Glucose 94 (74-106) mg/dL Calcium 8.3 L (8.4-10.2) mg/dL Total Bilirubin (0.2-1.3) mg/dL AST (14-36) U/L ALT (0-35) U/L Alkaline Phosphatase (38-126) U/L Troponin I < 0.012 (0.000-0.033) ng/mL NT-Pro-B Natriuret Pep (<300) pg/mL Serum Total Protein (6.3-8.2) g/dL Albumin (3.5-5.0) g/dL Procalcitonin (0.030-0.080) ng/mL Influenza Type A Ag (NEGATIVE) Influenza Type B Ag (NEGATIVE) RSV (PCR) (NEGATIVE) SARS-CoV-2 (PCR) (NEGATIVE) 07/12/24 Range/Units Unknown WBC (3.98-10.04) x10^3/uL RBC (3.93-5.22) x10^6/uL Hgb (11.2-15.7) g/dL Hct (34.1-44.9) % MCV (79.4-94.8) fL MCH (25.6-32.2) pg MCHC (32.2-35.5) g/dL RDW (11.7-14.4) % Plt Count (182-369) x10^3/uL MPV (9.4-12.3) fL Gran % (34.0-71.1) % Immature Gran % (Auto) (0.001-0.429) % Nucleat RBC Rel Count (0.00-0.2) % Eos # (Auto) (0.04-0.36) x10^3/uL Immature Gran # (Auto) (0.001-0.031) x10^3u/L Absolute Lymphs (auto) (1.18-3.74) x10^3/uL Absolute Monos (auto) (0.24-0.86) x10^3/uL Absolute Nucleated RBC (0.00-0.012) x10^3u/L Lymphocytes % (19.3-51.7) % Monocytes % (4.7-12.5) % Eosinophils % (0.7-5.8) % Basophils % (0.1-1.2) % Absolute Granulocytes (1.56-6.13) x10^3/uL Basophils # (0.01-0.08) x10^3/uL D-Dimer (0.0-0.50) mg/L Sodium (135-145) mmol/L Potassium (3.5-5.1) mmol/L Chloride (98-107) mmol/L Carbon Dioxide (22-30) mmol/L Anion Gap (5-15) MEQ/L BUN (7-17) mg/dL Creatinine (0.52-1.04) mg/dL Estimated GFR ML/MIN Glucose (74-106) mg/dL Calcium (8.4-10.2) mg/dL Total Bilirubin (0.2-1.3) mg/dL AST (14-36) U/L ALT (0-35) U/L Alkaline Phosphatase (38-126) U/L Troponin I (0.000-0.033) ng/mL NT-Pro-B Natriuret Pep (<300) pg/mL Serum Total Protein (6.3-8.2) g/dL Albumin (3.5-5.0) g/dL Procalcitonin 0.230 H (0.030-0.080) ng/mL Influenza Type A Ag (NEGATIVE) Influenza Type B Ag (NEGATIVE) RSV (PCR) (NEGATIVE) SARS-CoV-2 (PCR) (NEGATIVE) Radiology Exams: Radiology Procedures Category Date Time Status CHEST WITH CONTRAST [CT] Stat Exams 07/11/24 16:29 Completed Assessment/Plan (1) Pneumonia Current Visit: Yes Status: Acute Assessment & Plan: - CXR- right middle lobe pneumonia - IV antibiotics, steroids, duonebs - Flu/COVID/RSV negative - Sputum sample - CBC, CMP reviewed - BCx2 pending - procal 0.230 - 2lNC 94%- baseline RA - IS Q 1 hr Code(s): J18.9 - PNEUMONIA, 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 (2) Hypoxia Current Visit: Yes Status: Acute Assessment & Plan: - 2:2 pneumonia- see plan above Code(s): R09.02 - HYPOXEMIA (3) Wheezing Current Visit: Yes Status: Acute Assessment & Plan: - see above plan for pneumonia Code(s): R06.2 - WHEEZING (4) HTN (hypertension) Current Visit: Yes Status: Chronic Assessment & Plan: - increased lisinopril to 30mg daily - Bp elevated - trend - hydralizine PRN Code(s): I10 - ESSENTIAL (PRIMARY) HYPERTENSION (5) Depression Current Visit: Yes Status: Chronic Assessment & Plan: - continue home meds Code(s): F32.A - DEPRESSION, UNSPECIFIED (6) Chronic hip pain Current Visit: Yes Status: Chronic Assessment & Plan: Continue home morphine IR 15 mg TID Code(s): M25.559 - PAIN IN UNSPECIFIED HIP; G89.29 - OTHER CHRONIC PAIN (7) Obesity (BMI 30-39.9) Current Visit: Yes Status: Chronic Assessment & Plan: - advised diet and exercise control VTE: Lovenox Next of KIN: Bulmaro Benoit- [phone] D/C plan: tomorrow Code status: Full Code(s): E66.9 - OBESITY, UNSPECIFIED
[2024-07-12] MEDS ORDERED: Zestril 20 MG PO SCH (12:27)
[2024-07-12] MEDS ORDERED: APRESOLINE 20 MG/ML INJ IV PRN (12:28)
[2024-07-12] MEDS: Zestril 10 MG PO STA (13:46)
[2024-07-12] MEDS: DUONEB 0.5-3 MG/3 ml Neb IH SCH (14:38)
[2024-07-12] MEDS ORDERED: NON-FORMULARY ITEM (Gabapentin [Gabapentin] 600 MG Tablet) PO SCH (22:00)
[2024-07-12] MEDS: NEURONTIN PO SCH (22:41)
[2024-07-12] MEDS: Levofloxacin 500MG/100ML D5W 500 MG/100 ML BAG IV SCH (22:41)
[2024-07-13 05:01] LABS: Hematocrit 45.8 % (34.1-44.9); Hemoglobin 14.9 g/dL (11.2-15.7); Mean Corpuscular Hemoglobin 29.9 pg (25.6-32.2); Mean Corpuscular Hgb Concent. 32.5 g/dL (32.2-35.5); Platelet Count 228 x10^3/uL (182-369); Red Blood Count 4.98 x10^6/uL (3.93-5.22); White Blood Count 6.7 x10^3/uL (3.98-10.04)
--- NOTE | 2024-07-13 05:15 | PCM.NOTE ---
Date and Time: 07/13/24511 Subjective Assessment: Mrs. Lawrence is a 64-year-old woman with history of hypertension, chronic hip pain, and depression who presented to ED 07/11/24 with a 3 days history of dyspnea, wheezing, cough, fevers, and diarrhea. She was seen in urgent care and was found to be hypoxic with spo2 in the 80s and referred to ED. Upon arrival patient was febrile, hypertensive, bradycardic with spo2 at 90% on RA. Patient was placed on 2L NC with spo2 improving to 97%. Initial lab findings unremarkable with the exception of a Ddimer which was elevated on initial labs. CT chest was negative for PE- demonstrating diffuse bilateral patchy airspace disease. Respiratory viral panel negative for Covid/Flu/RSV. Patient received Duonebs, levaquin, and lisinopril in ED. Admitted for acute respiratory failure secondary to pneumonia. Ip treatment with Levaquin and solumedrol. 07/13/24: Patient endorses improvement in dyspnea and cough. Oxygen now at 1L. Lung sound with exp wheezing and coarse crackles on auscultation. Labs and vitals stable. Will continue abx and steroids tonight - continue to wean oxygen. Can most likely discharge tomorrow. - Review of Systems Constitutional: Weakness Eyes: No Symptoms Ears, Nose, & Throat: No Symptoms Respiratory: Cough, Short Of Breath, Wheezing Cardiac: No Symptoms Abdominal/Gastrointestinal: No Symptoms Genitourinary Symptoms: No Symptoms Musculoskeletal: No Symptoms Skin: No Symptoms Neurological: No Symptoms Psychological: No Symptoms Endocrine: No Symptoms Hematologic/Lymphatic: No Symptoms Immunological/Allergic: No Symptoms Objective Exam General Appearance: no apparent distress Neurologic Exam: alert, oriented x 3, cooperative Skin Exam: normal color Eye Exam: PERRL Ears, Nose, Throat Exam: normal ENT inspection Neck Exam: normal inspection Respiratory Exam: crackles/rales, wheezing Cardiovascular Exam: regular rate/rhythm, normal heart sounds Gastrointestinal/Abdomen Exam: soft, normal bowel sounds Extremity Exam: normal inspection Back Exam: normal inspection Pelvic Exam: deferred Rectal Exam: deferred Objective Data Vital Signs: Vital Signs - 24 hr Temp Pulse Resp BP Pulse Ox 07/13/24 04:00 98.3 F 58 L 20 130/65 95 07/13/24 03:24 53 L 18 99 07/12/24 23:41 97.9 F 65 18 129/72 97 07/12/24 23:10 58 L 18 96 07/12/24 20:00 97.3 F 74 22 138/67 94 L 07/12/24 18:42 61 22 90 L 07/12/24 16:00 97.1 F 65 20 141/86 92 L 07/12/24 14:39 48 L 18 90 L 07/12/24 11:48 97.9 F 67 22 188/86 93 L 07/12/24 10:49 81 22 95 07/12/24 07:55 44 L 20 94 L Pain Assessment - Last Documented Pain Intensity 0 Pain Scale Used 0-10 Pain Scale Intake and Output: Intake & Output 07/10/24 07/11/24 07/12/24 07/13/24 11:59 11:59 11:59 11:59 Intake Total 780 1040 Output Total 250 650 Balance 530 390 Weight 96.7 kg Lab Results: Lab Results-Last 24 Hours 07/12/24 07/12/24 07/13/24 Range/Units 04:15 Unknown 04:00 WBC 6.7 (3.98-10.04) x10^3/uL RBC 4.98 (3.93-5.22) x10^6/uL Hgb 14.9 (11.2-15.7) g/dL Hct 45.8 H (34.1-44.9) % MCV 92.0 (79.4-94.8) fL MCH 29.9 (25.6-32.2) pg MCHC 32.5 (32.2-35.5) g/dL RDW 13.0 (11.7-14.4) % Plt Count 228 (182-369) x10^3/uL MPV 11.0 (9.4-12.3) fL Sodium 134 L (135-145) mmol/L Potassium 3.9 (3.5-5.1) mmol/L Chloride 100 (98-107) mmol/L Carbon Dioxide 26 (22-30) mmol/L Anion Gap 12.0 (5-15) MEQ/L BUN 10 (7-17) mg/dL Creatinine 0.66 (0.52-1.04) mg/dL Estimated GFR 97.9 ML/MIN Glucose 94 (74-106) mg/dL Calcium 8.3 L (8.4-10.2) mg/dL Procalcitonin 0.230 H (0.030-0.080) ng/mL Radiology Exams: Radiology Procedures Category Date Time Status CHEST WITH CONTRAST [CT] Stat Exams 07/11/24 16:29 Completed Multi-Disciplinary Progress Notes: Multi-Disciplinary Progress Notes 07/12/24 15:53 Respiratory Note by Carlton Hanson GAVE PT FLUTTER DEVICE AND DISCUSSED HOW TO USE DEVICE. PT WAS LYING DOWN FOR A NAP SO DID NOT WANT TO USE THE DEVICE AT THIS TIME. Initialized on 07/12/24 15:53 - END OF NOTE Assessment/Plan (1) Pneumonia Current Visit: Yes Status: Acute Assessment & Plan: CT chest reviewed negative for PE- demonstrating diffuse bilateral patchy airspace disease. - Continue Levaquin due to allergy profile and solu-medrol -Supplemental oxygen with goal spo2 >92% - RA at baseline -currently on 1L - wean as appropriate - Flu/COVID/RSV negative - Sputum pending - CBC, CMP reviewed and unremarkable - BCx2 pending - procal 0.230 - IS Q 1 hr Code(s): J18.9 - PNEUMONIA, 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 (2) Acute respiratory failure with hypoxia Current Visit: Yes Status: Acute Assessment & Plan: - 2:2 pneumonia- see plan above Code(s): J96.01 - ACUTE RESPIRATORY FAILURE WITH HYPOXIA (3) Wheezing Current Visit: Yes Status: Acute Assessment & Plan: - see above plan for pneumonia Code(s): R06.2 - WHEEZING (4) Chronic hip pain Current Visit: Yes Status: Chronic Assessment & Plan: Continue home morphine IR 15 mg TID Code(s): M25.559 - PAIN IN UNSPECIFIED HIP; G89.29 - OTHER CHRONIC PAIN (5) Depression Current Visit: Yes Status: Chronic Assessment & Plan: - continue home meds Code(s): F32.A - DEPRESSION, UNSPECIFIED (6) HTN (hypertension) Current Visit: Yes Status: Chronic Assessment & Plan: - increased lisinopril to 30mg daily -improved - Bp elevated - trend - hydralizine PRN Code(s): I10 - ESSENTIAL (PRIMARY) HYPERTENSION (7) Obesity (BMI 30-39.9) Current Visit: Yes Status: Chronic Assessment & Plan: - advised diet and exercise control VTE: Lovenox Next of KIN: Bulmaro Benoit- [phone] D/C plan: tomorrow Code status: Full Code(s): E66.9 - OBESITY, UNSPECIFIED
[2024-07-13 05:50] LABS: ANION GAP 13.1 MEQ/L (5-15); BILIRUBIN,TOTAL 0.5 mg/dL (0.2-1.3); Calcium 8.9 mg/dL (8.4-10.2); Creatinine 1 0.62 mg/dL (0.52-1.04); EST GLOMERULAR FILTRATION RATE 99.4 ML/MIN; Potassium 4.2 mmol/L (3.5-5.1); Total Protein 7.3 g/dL (6.3-8.2)
[2024-07-13] MEDS: Zestril 20 MG PO SCH (10:56)
[2024-07-13] MEDS: BENADRYL 25 MG CAPSULE PO PRN (21:10)
[2024-07-14 05:06] LABS: Hematocrit 44.7 % (34.1-44.9); Hemoglobin 14.8 g/dL (11.2-15.7); Mean Cell Volume 91.2 fL (79.4-94.8); Mean Corpuscular Hemoglobin 30.2 pg (25.6-32.2); Mean Corpuscular Hgb Concent. 33.1 g/dL (32.2-35.5); Mean Platelet Volume 10.6 fL (9.4-12.3); Platelet Count 247 x10^3/uL (182-369); Red Cell Distribution Width 13.1 % (11.7-14.4); White Blood Count 11.1 x10^3/uL (3.98-10.04)
--- NOTE | 2024-07-14 05:08 | PCM.NOTE ---
Date and Time: 07/14/24 0507 Subjective Assessment: Mrs. Lawrence is a 64-year-old woman with history of hypertension, chronic hip pain, and depression who presented to ED 07/11/24 with a 3 days history of dyspnea, wheezing, cough, fevers, and diarrhea. She was seen in urgent care and was found to be hypoxic with spo2 in the 80s and referred to ED. Upon arrival patient was febrile, hypertensive, bradycardic with spo2 at 90% on RA. Patient was placed on 2L NC with spo2 improving to 97%. Initial lab findings unremarkable with the exception of a Ddimer which was elevated on initial labs. CT chest was negative for PE- demonstrating diffuse bilateral patchy airspace disease. Respiratory viral panel negative for Covid/Flu/RSV. Patient received Duonebs, levaquin, and lisinopril in ED. Admitted for acute respiratory failure secondary to pneumonia. Ip treatment with Levaquin and solumedrol. 07/13/24: Patient endorses improvement in dyspnea and cough. Oxygen now at 1L. Lung sound with exp wheezing and coarse crackles on auscultation. Labs and vitals stable. Will continue abx and steroids tonight - continue to wean oxygen. Can most likely discharge tomorrow. Objective Data Vital Signs: Vital Signs - 24 hr Temp Pulse Resp BP Pulse Ox 07/14/24 04:00 96.6 F 43 L 15 145/66 94 L 07/13/24 19:11 97.0 F 52 L 18 138/69 94 L 07/13/24 19:00 55 L 18 94 L 07/13/24 16:00 98.2 F 57 L 18 143/66 91 L 07/13/24 14:43 59 L 20 95 07/13/24 12:00 97.8 F 50 L 18 113/65 94 L 07/13/24 10:39 44 L 20 90 L 07/13/24 08:00 97.4 F 56 L 17 118/67 95 07/13/24 06:31 46 L 16 95 Pain Assessment - Last Documented Pain Intensity 2 Pain Scale Used 0-10 Pain Scale Intake and Output: Intake & Output 07/11/24 07/12/24 07/13/24 07/14/24 11:59 11:59 11:59 11:59 Intake Total 780 1160 810 Output Total 250 650 400 Balance 530 510 410 Weight 96.7 kg Lab Results: Lab Results-Last 24 Hours 07/13/24 Range/Units 04:00 Sodium 137 (135-145) mmol/L Potassium 4.2 (3.5-5.1) mmol/L Chloride 103 (98-107) mmol/L Carbon Dioxide 26 (22-30) mmol/L Anion Gap 13.1 (5-15) MEQ/L BUN 17 (7-17) mg/dL Creatinine 0.62 (0.52-1.04) mg/dL Estimated GFR 99.4 ML/MIN Glucose 138 H (74-106) mg/dL Calcium 8.9 (8.4-10.2) mg/dL Total Bilirubin 0.50 (0.2-1.3) mg/dL AST 28 (14-36) U/L ALT 18 (0-35) U/L Alkaline Phosphatase 83 (38-126) U/L Serum Total Protein 7.3 (6.3-8.2) g/dL Albumin 4.0 (3.5-5.0) g/dL Multi-Disciplinary Progress Notes: Multi-Disciplinary Progress Notes 07/13/24 12:40 Case Management Note by Jessica Lopez S/W PATIENT- SHE CONTINUES TO DENY ANY NEW NEEDS AT TIME OF DC, SHE PLANS TO RETURN HOME TO HER PLF AT TIME OF DC Initialized on 07/13/24 12:40 - END OF NOTE Assessment/Plan (1) Pneumonia Current Visit: Yes Status: Acute Assessment & Plan: CT chest reviewed negative for PE- demonstrating diffuse bilateral patchy airspace disease. - Continue Levaquin due to allergy profile and solu-medrol -Supplemental oxygen with goal spo2 >92% - RA at baseline -currently on 1L - wean as appropriate - Flu/COVID/RSV negative - Sputum pending - CBC, CMP reviewed and unremarkable - BCx2 pending - procal 0.230 - IS Q 1 hr Code(s): J18.9 - PNEUMONIA, 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 (2) Acute respiratory failure with hypoxia Current Visit: Yes Status: Acute Assessment & Plan: - 2:2 pneumonia- see plan above Code(s): J96.01 - ACUTE RESPIRATORY FAILURE WITH HYPOXIA (3) Wheezing Current Visit: Yes Status: Acute Assessment & Plan: - see above plan for pneumonia Code(s): R06.2 - WHEEZING (4) Chronic hip pain Current Visit: Yes Status: Chronic Assessment & Plan: Continue home morphine IR 15 mg TID Code(s): M25.559 - PAIN IN UNSPECIFIED HIP; G89.29 - OTHER CHRONIC PAIN (5) Depression Current Visit: Yes Status: Chronic Assessment & Plan: - continue home meds Code(s): F32.A - DEPRESSION, UNSPECIFIED (6) HTN (hypertension) Current Visit: Yes Status: Chronic Assessment & Plan: - increased lisinopril to 30mg daily -improved - Bp elevated - trend - hydralizine PRN Code(s): I10 - ESSENTIAL (PRIMARY) HYPERTENSION (7) Obesity (BMI 30-39.9) Current Visit: Yes Status: Chronic Assessment & Plan: - advised diet and exercise control VTE: Lovenox Next of KIN: Bulmaro Benoit- [phone] D/C plan: tomorrow Code status: Full Code(s): J18.9 - PNEUMONIA, 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 (2) Acute respiratory failure with hypoxia Current Visit: Yes Status: Acute Code(s): J96.01 - ACUTE RESPIRATORY FAILURE WITH HYPOXIA (3) Wheezing Current Visit: Yes Status: Acute Code(s): R06.2 - WHEEZING (4) Chronic hip pain Current Visit: Yes Status: Chronic Code(s): M25.559 - PAIN IN UNSPECIFIED HIP; G89.29 - OTHER CHRONIC PAIN (5) Depression Current Visit: Yes Status: Chronic Code(s): F32.A - DEPRESSION, UNSPECIFIED (6) HTN (hypertension) Current Visit: Yes Status: Chronic Code(s): I10 - ESSENTIAL (PRIMARY) HYPERTENSION (7) Obesity (BMI 30-39.9) Current Visit: Yes Status: Chronic Code(s): E66.9 - OBESITY, UNSPECIFIED
[2024-07-14 05:16] LABS: ALBUMIN 3.9 g/dL (3.5-5.0); BILIRUBIN,TOTAL 0.4 mg/dL (0.2-1.3); Calcium 8.8 mg/dL (8.4-10.2); Creatinine 1 0.64 mg/dL (0.52-1.04); EST GLOMERULAR FILTRATION RATE 98.6 ML/MIN; Potassium 4.5 mmol/L (3.5-5.1); Total Protein 6.9 g/dL (6.3-8.2)
[2024-07-14 06:24] LABS: BAND 1 % (0.0-2.0); Lymphocytes 10 % (19.3-51.7); Monocyte 2 % (4.7-12.5); Neutrophils 87 % (34.0-71.1); Platelet Estimate NORMAL (NORMAL); Total Cells Counted 100
--- NOTE | 2024-07-14 10:36 | PCM.DS ---
Discharge Summary Date of Admission: 07/11/24 20:40 Date of Discharge: 07/14/24 Admitting Physician: MERCEDES HENDRICKS MD Primary Care Provider: ESTHER DE LA GARZA Allergies Allergies Penicillins Allergy (Mild, Verified 06/21/24 11:53) Hospital Summary - Hospital Course Hospital Course: Mrs. Lawrence is a 64-year-old woman with history of hypertension, chronic hip pain, and depression who presented to ED 07/11/24 with a 3 days history of dyspnea, wheezing, cough, fevers, and diarrhea. She was seen in urgent care and was found to be hypoxic with spo2 in the 80s and referred to ED. Upon arrival patient was febrile, hypertensive, bradycardic with spo2 at 90% on RA. Patient was placed on 2L NC with spo2 improving to 97%. Initial lab findings unremarkable with the exception of a Ddimer which was elevated on initial labs. CT chest was negative for PE- demonstrating diffuse bilateral patchy airspace disease. Respiratory viral panel negative for Covid/Flu/RSV. Patient received Duonebs, levaquin, and lisinopril in ED. Admitted for acute respiratory failure secondary to pneumonia. Ip treatment with Levaquin and solumedrol. Dypsnea and cough have improved. Patient will require home oxygen at 2L as sats decreased to 88% with ambulation. Will continue levaquin and prednisone at home. Patient has home nebulizer. Discharge Note New Diagnosis: Pneumonia New Medications:Levaquin/ prednisone/ DuoNebs Prn - has at home/protonix Follow Up: PCP Results pending: Sputum culture I spent 35 minutes [id number] with the patient on the day of discharge performing discharge exam, discussing hospital stay and discharge instructions with patient and caregivers, preparation of discharge records, prescriptions & referral forms and addressing any questions/concerns the patient had as documented above. - Vitals & Intake/Output Vital Signs: Vital Signs Temperature 98.4 F 07/14/24 08:00 Pulse Rate 52 L 07/14/24 08:00 Respiratory Rate 18 07/14/24 08:00 Blood Pressure 128/61 07/14/24 08:00 O2 Sat by Pulse Oximetry 98 07/14/24 08:00 Intake & Output: Intake & Output 07/11/24 07/12/24 07/13/24 07/14/24 11:59 11:59 11:59 11:59 Intake Total 780 1160 930 Output Total 198 650 400 Balance 530 510 530 Weight 96.7 kg - Lab Result Diagrams: 07/14/24 04:45 07/14/24 04:45 Lab Results-Last 24 Hrs: Lab Results-Last 24 Hours 07/14/24 07/14/24 Range/Units 04:45 04:45 WBC 11.1 H (3.98-10.04) x10^3/uL RBC 4.90 (3.93-5.22) x10^6/uL Hgb 14.8 (11.2-15.7) g/dL Hct 44.7 (34.1-44.9) % MCV 91.2 (79.4-94.8) fL MCH 30.2 (25.6-32.2) pg MCHC 33.1 (32.2-35.5) g/dL RDW 13.1 (11.7-14.4) % Plt Count 247 (182-369) x10^3/uL MPV 10.6 (9.4-12.3) fL Segmented Neutrophils 87 H (34.0-71.1) % Band Neutrophils 1 (0.0-2.0) % Lymphocytes (Manual) 10 L (19.3-51.7) % Monocytes (Manual) 2 L (4.7-12.5) % Platelet Estimate NORMAL (NORMAL) RBC Morphology NORMAL Sodium 137 (135-145) mmol/L Potassium 4.5 (3.5-5.1) mmol/L Chloride 106 (98-107) mmol/L Carbon Dioxide 24 (22-30) mmol/L Anion Gap 11.0 (5-15) MEQ/L BUN 23 H (7-17) mg/dL Creatinine 0.64 (0.52-1.04) mg/dL Estimated GFR 98.6 ML/MIN Glucose 131 H (74-106) mg/dL Calcium 8.8 (8.4-10.2) mg/dL Total Bilirubin 0.40 (0.2-1.3) mg/dL AST 26 (14-36) U/L ALT 18 (0-35) U/L Alkaline Phosphatase 72 (38-126) U/L Serum Total Protein 6.9 (6.3-8.2) g/dL Albumin 3.9 (3.5-5.0) g/dL Micro Results-Entire Visit: Microbiology 07/11/24 14:58 Blood Culture - Preliminary Blood 07/11/24 14:51 Blood Culture - Preliminary Blood - Procedures and Test Procedures and Tests throughout Hospitalization: Therapy Orders & Screens 07/11/24 15:05 Respiratory Therapy Assessment DAILY Comment: 07/11/24 21:29 Oxygen Oxymizer LPM 2 lpm Comment: Diagnosis: Bilat. Pneumonia 07/12/24 14:43 FLUTTER [Flutter Therapy] UD Comment: Diagnosis: shortness of breath, cough Discharge Exam General Appearance: no apparent distress Neurologic Exam: alert, oriented x 3, cooperative Eye Exam: PERRL Ears, Nose, Throat Exam: normal ENT inspection Neck Exam: normal inspection Respiratory Exam: crackles/rales, wheezing Cardiovascular Exam: regular rate/rhythm, normal heart sounds Gastrointestinal/Abdomen Exam: soft, normal bowel sounds Pelvic Exam: deferred Rectal Exam: deferred Back Exam: normal inspection Extremity Exam: normal inspection Skin Exam: normal color Final Diagnosis/Problem List - Final Discharge Diagnosis/Problem (1) Pneumonia Current Visit: Yes Status: Acute Code(s): J18.9 - PNEUMONIA, 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 (2) Acute respiratory failure with hypoxia Current Visit: Yes Status: Resolved Code(s): J96.01 - ACUTE RESPIRATORY FAILURE WITH HYPOXIA (3) Wheezing Current Visit: Yes Status: Acute Code(s): R06.2 - WHEEZING (4) Chronic hip pain Current Visit: Yes Status: Chronic Code(s): M25.559 - PAIN IN UNSPECIFIED HIP; G89.29 - OTHER CHRONIC PAIN (5) Depression Current Visit: Yes Status: Chronic Code(s): F32.A - DEPRESSION, UNSPECIFIED (6) HTN (hypertension) Current Visit: Yes Status: Chronic Code(s): I10 - ESSENTIAL (PRIMARY) HYPERTENSION (7) Obesity (BMI 30-39.9) Current Visit: Yes Status: Chronic Code(s): E66.9 - OBESITY, UNSPECIFIED - Discharge Discharge Date: 07/14/24 Disposition: Home, Self-Care Condition: Stable Prescriptions: New Prednisone 20 mg [Deltasone 20 mg] 20 mg PO BID 5 Days #10 tablet Albuterol/Ipratropium 3ml Neb* [DUONEB 0.5-3 MG/3 ml Neb] 3 ml IH Q6HPRN PRN 30 Days #120 amp PRN Reason: Shortness Of Breath/Wheezing levoFLOXacin [Levofloxacin] 750 mg PO DAILY 7 Days #7 tablet PANTOPRAZOLE 40 mg Tablet [Protonix 40MG Tablet] 40 mg PO QAM 30 Days #30 tab Continue Potassium Chloride 10 meq PO DAILY Venlafaxine HCl [Venlafaxine HCl ER] 150 mg PO DAILY Rosuvastatin Calcium 5 mg PO DAILY Lisinopril 20 mg [Zestril 20 MG] 20 mg PO DAILY Morphine Sulfate 1 tab PO TID PRN PRN Reason: Pain Gabapentin 600 mg PO HS Furosemide [Lasix] 20 mg PO DAILY Instructions: Oxygen therapy at home Additional Instructions: WEAR 2L/NC AT ALL TIMES CALL [facility] AT [phone] WHEN YOU LEAVE [facility] SO THEY CAN DELIVER YOUR HOME OXYGEN CONCENTRATOR Follow up with: ESTHER DE LA GARZA [Primary Care Provider] -
[2024-07-14 10:50] VITALS: RESP 16
[2024-07-14 11:28] VITALS: BP 145/65; PULSE 50; TEMP 97.6; O2SAT 95
== END 2024-07-14 13:17 | disposition home or self-care (01) ==
LOC: ED 14:34 → MED SURG 20:40
PROVIDERS: ADMIT Internal Medicine; ATTEND Internal Medicine
DX: J18.9 Pneumonia, unspecified organism (principal); J96.01 Acute respiratory failure with hypoxia; M25.559 Pain in unspecified hip; G89.29 Other chronic pain; F32.A Depression, unspecified; I10 Essential (primary) hypertension; E66.9 Obesity, unspecified; R05.1 Acute cough; Z79.899 Other long term (current) drug therapy
CPT/HCPCS: 0241U; 36415; 71260; 80048; 80053; 83880; 84145; 84484; 85025; 85027; 85379; 87040; 87070; 93005; 93041; 94640; 94667; 94668; 94760; 96374; 96375; 99285; Q3014; G0378; J1200; J1650; J1956; J2919; A9270-GY

== ENCOUNTER 2024-08-04 23:04 | Emergency (ER) | payer BC ==
--- NOTE | 2024-08-04 23:17 | ERPHSYRPT ---
- History of Present Illness Time Seen by Provider: 08/04/24 23:16 Source: patient, family Exam Limitations: no limitations Physician History: This is a morbidly obese 64-year-old white female patient who arrives per private vehicle and is a patient of Dr. Harris and Dr. Mcrae pain specialist. Patient has chronic left knee pain and was recently seen by her pain specialist, Dr. Mcrae. He injected the left knee with a steroid per patient report. In the past, the injections have helped this patient. However, 3 days ago she had her injection and her pain is no better. 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 Patient has a history of hyperlipidemia, hypertension, COPD and gastroesophageal reflux disease. She is not on any oral antibiotics and not on any oral steroids. Patient was diagnosed with left knee bursitis Method of Injury: other (No new injury) Occurred: other (Symptoms for the last several days.) Quality: aching, throbbing Severity of Pain-Max: moderate Severity of Pain-Current: moderate Lower Extremities Pain: knee: left Modifying Factors: Improves With: movement Associated Symptoms: other (Hurts to bear weight) Allergies/Adverse Reactions: Penicillins Allergy (Mild, Verified 06/21/24 11:53) Home Medications: Furosemide [Lasix] 20 mg PO DAILY 07/11/24 [History] Gabapentin 600 mg PO HS 07/11/24 [History] Lisinopril 20 mg [Zestril 20 MG] 20 mg PO DAILY 07/11/24 [History] Potassium Chloride 10 meq PO DAILY 07/11/24 [History] Rosuvastatin Calcium 5 mg PO DAILY 07/11/24 [History] Venlafaxine HCl [Venlafaxine HCl ER] 150 mg PO DAILY 07/11/24 [History] Oxycodone HCl/Acetaminophen [Oxycodone-Acetaminophn 7.5-325] 1 tab PO Q6HPRN PRN 08/05/24 [History] Hx Tetanus, Diphtheria Vaccination/Date Given: No (unknown) Hx Influenza Vaccination/Date Given: No Hx Pneumococcal Vaccination/Date Given: No Travel Risk - International Travel Have you traveled outside of the country in past 3 weeks: No - Emerging Infectious Disease Are you exhibiting symptoms associated with any current EIDs: No Symptoms: Shortness of Breath - Review of Systems Constitutional: No Symptoms Eyes: No Symptoms Ears, Nose, & Throat: No Symptoms Respiratory: No Symptoms Cardiac: No Symptoms Abdominal/Gastrointestinal: No Symptoms Genitourinary Symptoms: No Symptoms Musculoskeletal: Joint Pain (Left knee) Skin: No Symptoms Neurological: No Symptoms Psychological: No Symptoms Endocrine: No Symptoms Hematologic/Lymphatic: No Symptoms Immunological/Allergic: No Symptoms All Other Systems: Reviewed and Negative - Past Medical History Pertinent Past Medical History: Yes Neurological History: Migraines, Peripheral Neuropathy ENT History: No Pertinent History Cardiac History: Hypertension Respiratory History: No Pertinent History Endocrine Medical History: No Pertinent History Musculoskeletal History: Fractures GI Medical History: No Pertinent History History: No Pertinent History Psycho-Social History: No Pertinent History Female Reproductive Disorders: No Pertinent History Other Medical History: PSH: BILATERAL HIP REPLACEMENT (2014 AND 2016), HYSTERECTOMY, HERNIA REPAIR. FRACTURES: TAILBONE X2 - Past Surgical History Past Surgical History: Yes Neuro Surgical History: No Pertinent History Cardiac: No Pertinent History Respiratory: No Pertinent History Gastrointestinal: No Pertinent History Genitourinary: No Pertinent History Musculoskeletal: Joint Replacement Female Surgical History: Hysterectomy Other Surgical History: amarilys.hip replacement Significant Family History: no pertinent family hx - Social History Smoking Status: Never smoker Exposure to second hand smoke: No Drug Use: none - Social Determinants of Health Will the patient participate in the screening: Declined to provide Do you worry about a steady place to live?: No In the past 12 months,have you had to go without utilities?: No Transportation Issues: No Has anyone in your support network made you feel unsafe?: No Have you or anyone in your house had to go w/o enough food: No - Nursing Vital Signs Nursing Vital Signs: Initial Vital Signs Temperature 98.3 F 08/04/24 23:18 Pulse Rate 60 08/04/24 23:18 Respiratory Rate 18 08/04/24 23:18 Blood Pressure 173/111 08/04/24 23:18 O2 Sat by Pulse Oximetry 99 08/04/24 23:18 Pain Scale Pain Intensity [Left Knee] 10 Pain Intensity 10 - Physical Exam General Appearance: no apparent distress, alert, anxiety, obese Eyes, Ears, Nose, Throat Exam: normal ENT inspection, moist mucous membranes Neck Exam: normal inspection, non-tender, supple, full range of motion Cardiovascular/Respiratory Exam: chest non-tender, no respiratory distress Gastrointestinal/Abdominal Exam: non-tender Back Exam: normal inspection, normal range of motion, No CVA tenderness, No vertebral tenderness Hips Exam: bilateral: non-tender, normal inspection, normal range of motion, no evidence of injury Legs Exam: bilateral leg: non-tender, normal inspection, normal range of motion, no evidence of injury Knees Exam: right knee: non-tender, normal inspection, no evidence of injury, left knee: bone tenderness, ecchymosis (Medial aspect at the injection site), soft tissue tenderness, other (There is no evidence of redness. However there is warmth that is present on the left side but not on the right), bilateral knee: normal range of motion Ankle Exam: bilateral ankle: non-tender, normal inspection, normal range of motion, no evidence of injury Foot Exam: bilateral foot: non-tender, normal inspection, normal range of motion, no evidence of injury Neuro/Tendon Exam: normal sensation, normal motor functions, normal tendon functions Mental Status Exam: alert, oriented x 3, cooperative Skin Exam: normal color, warm, dry SpO2 Interpretation: normal O2 Delivery: Room Air - Course Nursing assessment & vital signs reviewed: Yes Ordered Tests: Medication Summary Discontinued Medications Generic Name Dose Route Start Last Admin Trade Name Freq PRN Reason Stop Dose Admin Hydromorphone HCl 0.5 mg 08/05/24 00:25 Hydromorphone 1 Mg/1ml Inj IM 08/05/24 00:26 STAT ONE Levofloxacin 500 mg 08/05/24 00:26 Levofloxacin 500 Mg Tablet PO 08/05/24 00:27 STAT ONE Ondansetron HCl 4 mg 08/05/24 00:26 Zofran 4 Mg/Udtablet Orally Disintegrating PO 08/05/24 00:27 STAT ONE Orphenadrine Citrate 60 mg 08/05/24 00:25 Orphenadrine Citrate 60 Mg/2 Ml Vial IM 08/05/24 00:26 STAT ONE - Progress Progress: improved, pain not gone completely Progress Note: 08/05/24 00:36 My medical decision making of the assignment of low complexity to this patient's medical issue today is based on review of the patient's past medical history, r eview of the patient's medication list, review patient drug allergy list, history present illness and physical findings on examination. The workup in this patient does not require radiographic or laboratory studies. The patient is being followed closely as an outpatient. We will try to improve her pain using an injection of Dilaudid intramuscularly as well as intramuscular orphenadrine. Differential diagnoses include but is not limited to cellulitis, left knee bursitis Counseled pt/family regarding: diagnosis, need for follow-up Medical Desision Making - Diagnostic Testing Diagnostic test were ordered, analyzed, and reviewed by me: No - Risk of complications The pt has a mod risk of morbidity or mortality based on: Need for prescription drug management - Departure Departure Disposition: Home Clinical Impression: Left anterior knee pain Condition: Stable Critical Care Time: No Referrals: ESTHER DE LA GARZA [Primary Care Provider] - Follow up/PCP as directed Additional Instructions: Continue your oxycodone/acetaminophen medication as prescribed. Take your new prescription medication as prescribed. Call your prescribing provider on 08/07/2024, to make arrangements for follow-up appointment for further evaluation management. Forms: Work/School Release Form Prescriptions: Levofloxacin [Levaquin 500 MG Tablet] 500 mg PO DAILY #7 tablet Orphenadrine Citrate 100 mg [Norflex 100 MG Tablet] 100 mg PO BID #10 tab
[2024-08-04 23:29] VITALS: RESP 18; TEMP 98.3
[2024-08-05] MEDS ORDERED: ZOFRAN ODT 4 MG ONE (00:35)
[2024-08-05] MEDS ORDERED: Levofloxacin 500 MG Tablet ONE (00:35)
[2024-08-05] MEDS ORDERED: Norflex 60 MG/2 ML ONE (00:35)
[2024-08-05] MEDS ORDERED: Hydromorphone 1 mg/ml Injection ONE (00:36)
[2024-08-05] MEDS: Hydromorphone 1 mg/ml Injection IM ONE (00:39)
[2024-08-05] MEDS: Norflex 60 MG/2 ML IM ONE (00:40)
[2024-08-05] MEDS: Levofloxacin 500 MG Tablet PO ONE (00:40)
[2024-08-05] MEDS: ZOFRAN ODT 4 MG PO ONE (00:40)
[2024-08-05 01:09] VITALS: BP 156/90; PULSE 54; O2SAT 97
== END 2024-08-05 01:13 | disposition home or self-care (01) ==
LOC: ED 23:04
DX: M25.562 Pain in left knee (principal); E78.5 Hyperlipidemia, unspecified; I10 Essential (primary) hypertension; Z79.891 Long term (current) use of opiate analgesic; Z79.899 Other long term (current) drug therapy
CPT/HCPCS: 96372; 99283; 99284; J1171; J2360; Q0162; A9270-GY